=== PATIENT | female | born 1980 | race Caucasian/White ===

== ENCOUNTER 2016-08-20 14:06 | Emergency (ER) | payer OTHER ==
[~2016-08-20] VITALS: Ht 167.6 cm; Wt 88.9 kg
[~2016-08-20 14:06] MED LIST: BENTYL20 MG PO; CARAFATE100 MG/ML PO; ENDOCET 5-3251 EACH PO; HEARTBURN RELIE15 MG PO; KEFLEX500 MG PO; LEVAQUIN750 MG PO; LOMOTIL TABLET1 EACH PO; MOTRIN800 MG PO; PEN-VEE K,VEET500 MG PO; PERCOCET 5/31 TABLET PO; PREVACID SOLUTA15 MG; PREVACID15 MG PO; PROMETHAZINE HC25 M1 PO; SUCRALFATE1 GM/10 ML PO; TRAMADOL HCL50 MG PO; TYLENOL EXTRA500 MG PO; ZOFRAN ODT4 MG PO
[2016-08-20 15:23] LABS: HEMATOCRIT 43.3 % (36.0-46.0); MCHC 35.1 G/DL (30.0-36.0); MCV 85.6 FL (83-99); MEAN PLAT.VOLUME 10.8 uM^3 (9.5-12.4); PLATELET COUNT 201 K/uL (156-360); RBC DIS.WIDTH-CV 12.4 % (11.8-14.6); RBC DIS.WIDTH-SD 38.5 % (39-53); RED BLOOD COUNT 5.06 M/uL (3.80-5.20)
[2016-08-20 15:39] LABS: CHLORIDE 100 mEq/L (99-109); POTASSIUM 3.5 mEq/L (3.7-5.4); SODIUM 134 mEq/L (136-147)
[2016-08-20 15:41] LABS: GLUCOSE 127 mg/dL (70-99)
[2016-08-20 15:42] LABS: ANION GAP 12 MEQ/L (2-14)
[2016-08-20 15:44] LABS: GFR ESTIMATE (CALCULATED) > 59 mL/min/
[2016-08-20 15:45] LABS: UREA NITROGEN (BUN) 11 mg/dL (9-23)
[2016-08-20 16:08] LABS: TOTAL BILIRUBIN 0.5 mg/dL (0.0-1.0)
[2016-08-20 16:09] LABS: ALKALINE PHOSPHATASE 62 IU/L (3-129)
[2016-08-20 16:10] LABS: INFLUENZA A VIRAL ANTIGEN NEGATIVE; INFLUENZA B VIRAL ANTIGEN NEGATIVE
[2016-08-20 16:12] LABS: DIRECT BILIRUBIN 0.2 mg/dL (0.0-0.3)
[2016-08-20 16:18] LABS: QUANTITATIVE HCG < 4.0 MIU/ML
[2016-08-20 16:30] LABS: ADD MIUA? YES; BILIRUBIN NEGATIVE; BLOOD MODERATE; COLOR YELLOW ((YELLOW)); GLUCOSE (STRIP) NEGATIVE; KETONES TRACE; LEUKOCYTES MODERATE; NITRITE POSITIVE; PH, URINE 5.5 (5-8); PROTEIN (STRIP) 100; SPECIFIC GRAVITY 1.016 (1.000-1.030)
[2016-08-20 16:49] LABS: RED BLOOD CELLS RARE /HPF (0-5)
[2016-08-20 16:50] LABS: BACTERIA 3+; CASTS NONE SEEN /LPF; CRYSTALS NONE SEEN; EPITHELIAL CELLS 1+; MUCUS NONE SEEN; UCUL ADDED? YES; WHITE BLOOD CELLS 30-40 /HPF (0-5)
[2016-08-20 17:20] LABS: EOSINOPHIL (%) 0 % (0-5); IMMATURE GRANULOCYTE (%) 0.5 % (0.0-0.7); IMMATURE GRANULOCYTE COUNT 0.6 K/uL; LYMPHOCYTE COUNT 1.1 K/uL (1.0-2.8); MONOCYTE (%) 8.7 % (3-12); MONOCYTE COUNT 1.1 K/uL (0-0.8); NEUTROPHIL (%) 81.9 % (45-76); NEUTROPHIL COUNT 10.8 K/uL (1.8-6.4)
[2016-08-20] MEDS ORDERED: LEVAQUIN500 MG PO (21:11)
[2016-08-20] MEDS ORDERED: ZOFRAN4 MG PO (21:12)
[2016-08-20 23:21] VITALS: BP 123/83
== END 2016-08-20 23:31 | disposition home or self-care (01) ==
LOC: EME 14:06
PROVIDERS: Physician Assistant
DX: N12 Tubulo-interstitial nephritis, not specified as acute or chronic (principal); E86.0 Dehydration; K21.9 Gastro-esophageal reflux disease without esophagitis; F17.200 Nicotine dependence, unspecified, uncomplicated
CPT/HCPCS: 71020; 80048; 80076; 81003; 83605; 83690; 84702; 85025; 85027; 87040; 87077; 87086; 87186; 87502; 93005; 99281; 99285; J1956; J2765; J7030; J7120